=== PATIENT | male | born 1990 | race Hispanic/Latino ===

== ENCOUNTER 2019-02-21 17:51 | Emergency (ER) | payer OTHER ==
[2019-02-21] MEDS ORDERED: IBUPROFEN 800 MG TAB ONE (19:53)
[2019-02-21 20:11] LABS: RAPID GROUP A STREP NEGATIVE (NEGATIVE)
== END 2019-02-21 20:27 | disposition left against medical advice (07) ==
LOC: EDH 17:51
DX: J10.1 Influenza due to other identified influenza virus with other respiratory manifestations (principal)
CPT/HCPCS: 87804; 87880

== ENCOUNTER 2019-09-05 14:42 | Emergency (ER) | payer SELFPAY | END 2019-09-05 15:23 | disposition home or self-care (01) | LOC: EDH 14:42 | DX: K08.89 Other specified disorders of teeth and supporting structures (principal); Z72.0 Tobacco use | CPT/HCPCS: 99281 ==